=== PATIENT | female | born 1985 | race Caucasian/White ===

== ENCOUNTER 2022-11-19 15:55 | Emergency (ER) | payer BC, SELFPAY ==
[2022-11-19 16:01] VITALS: BP 116/68; PULSE 68; RESP 18; TEMP 36.6; O2SAT 96; BMI 31.3
--- NOTE | 2022-11-19 16:28 | ED_ITS ---
HPI - General Adult General Date Seen: 11/19/22 Chief complaint: Neck Injury/Pain Stated complaint: neck pain Time Seen by Provider: 11/19/22 16:01 Source: patient Mode of arrival: ambulatory Limitations: no limitations History of Present Illness HPI narrative: Patient is a 37-year-old female who comes in with three weeks of neck pain and stiffness. There is no radiation of pain down her arms. 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 She has tried some Tylenol and ibuprofen without much relief. Unclear why she comes in to the ER three weeks after the onset of pain in set of following up in the clinic. She goes to the [facility] but does not identify PCP. She has muscle tightness but no complaints of spasm. Ice and massage have not helped. Related Data Home Medications Medication Instructions Recorded Confirmed bupropion HCl PO 11/19/22 sertraline .ROUTE 11/19/22 Previous Rx's Medication Instructions Recorded cyclobenzaprine 5 mg tablet 5 mg PO BID PRN muscle spasm #20 11/19/22 tabs naproxen 500 mg tablet 500 mg PO BID #60 tabs 11/19/22 Allergies Allergy/AdvReac Type Severity Reaction Status Date / Time sulfamethoxazole Allergy Mild Verified 11/19/22 16:05 [From Bactrim] trimethoprim [From Bactrim] Allergy Mild Verified 11/19/22 16:05 Review of Systems Narrative: Review of systems is outlined above otherwise noted to be negative. PFSH PFSH Social History Smoking Status: Current some day smoker How often do you have a drink containing alcohol: monthly or less AUDIT-C Alcohol total score: 1 Non-prescribed substance use: marijuana (any form) Exam Narrative: Exam Narrative: Vitals noted. HEENT: Conjunctiva clear. Neck is supple without adenopathy, thyromegaly, carotid bruit. She has myofascial tightness and tenderness of the upper back and neck. No palpable spasms. Full range of motion in his cervical spine. Lungs: Clear to auscultation in all lopez. No wheezes, rales, rhonchi. Heart: Regular rate and rhythm without murmur. Extremities: No cyanosis or edema. Good distal pulses. Skin: No abnormalities noted of the exposed skin. Neurologic: Awake, alert, fully oriented. Neurologic exam is nonfocal. Const: Vital Signs, click to edit/add: Vital Signs - 24 hr 11/19/22 16:01 Temperature 97.9 F Pulse Rate [Pulse Oximeter] 68 Respiratory Rate 18 Blood Pressure [Ri ght Upper Arm] 116/68 Pulse Oximetry 96 Oxygen Delivery Me thod Room Air Course Vital Signs Vital signs: Initial Vital Signs Temperature 97.9 F 11/19/22 16:01 Temperature Source Temporal Artery Scan 11/19/22 16:01 Pulse Rate 68 11/19/22 16:01 Respiratory Rate 18 11/19/22 16:01 Blood Pressure 116/68 11/19/22 16:01 Blood Pressure Mean 84 11/19/22 16:01 Blood Pressure Position Supine 11/19/22 16:01 Pulse Oximetry 96 11/19/22 16:01 Oxygen Delivery Method 11/19/22 16:01 Vital Signs Temperature 97.9 F 11/19/22 16:01 Pulse Rate 68 11/19/22 16:01 Respiratory Rate 18 11/19/22 16:01 Blood Pressure 116/68 11/19/22 16:01 Pulse Oximetry 96 11/19/22 16:01 Oxygen Delivery Method 11/19/22 16:01 Temperature 97.9 F 11/19/22 16:01 Pulse Rate 68 11/19/22 16:01 Respiratory Rate 18 11/19/22 16:01 Blood Pressure 116/68 11/19/22 16:01 Pulse Oximetry 96 11/19/22 16:01 Oxygen Delivery Method 11/19/22 16:01 Medical Decision Making MDM Narrative Medical decision making narrative: Patient is a subacute cervical strain without any evidence of neurologic compromise. She is to follow up in the clinic and get set up for some physical therapy. I will send in a stronger anti-inflammatory to try as well as muscle relaxant that she can use at bedtime. I have given her some work restrictions limiting work above chest level and limiting heavy lifting until she is seen in follow-up. Discharge Plan Discharge Clinical Impression: Strain of neck muscle Patient Disposition: Home, Self-Care Condition: Stable Additional Instructions: Work restrictions, ice, massage, Naproxen 500 mg twice a day, Cyclobenzaprine 5 mg twice a day as needed for muscle spasms. Follow up with your PCP to discuss a PT referral. Prescriptions: New naproxen 500 mg tablet 500 mg PO BID Qty: 60 0RF cyclobenzaprine 5 mg tablet 5 mg PO BID PRN (Reason: muscle spasm) Qty: 20 0RF No Action sertraline .ROUTE bupropion HCl PO Stand Alone Forms: Run [employer] Info Instructions
== END 2022-11-19 16:40 | disposition home or self-care (01) ==
PROVIDERS: Emergency Provider Family Medicine
DX: S16.1XXA Strain of muscle, fascia and tendon at neck level, initial encounter (principal); X50.3XXA Overexertion from repetitive movements, initial encounter
CPT/HCPCS: 99282